=== PATIENT | female | born 2000 | race Caucasian/White ===

== ENCOUNTER → 2021-09-28 13:48 | Outpatient (CLI) | payer OTHER, SELFPAY ==
--- NOTE | ~2021-09-28 | US_ITS ---
EXAMINATION: US pelvic complete EXAM DATE: 09/28/2021 14:25 INDICATION: RLQ pain. TECHNIQUE: Pelvic transabdominal and transvaginal sonogram was performed. There are multiple graysca le and Doppler images available for interpretation. There is no prior study for comparison. FINDINGS: Uterus measures 6.9 x 3.1 x 4.3 cm, and is morphologically normal. Endometrial stripe melinda sures 5 mm, within normal limits. There is no free pelvic fluid. Right adnexa: The ovary measures 3.3 x 1.9 x 2.6 cm and is morphologically normal. Ovarian vascular f low confirmed. Left adnexa: The ovary measures 2.6 x 2.0 x 2.5 cm and is morphologically normal. Ovarian vascular fl ow confirmed. IMPRESSION: 1. Unremarkable pelvic ultrasound exam. Reviewed, dictated and finalized at [facility]
== END ==
PROVIDERS: PCP Internal Medicine; Visit Provider Physician Assistant Medical
DX: R10.31 Right lower quadrant pain (principal)
CPT/HCPCS: 76856